=== PATIENT | female | born 1990 | race Caucasian/White ===

== ENCOUNTER 2020-09-23 11:50 | Emergency (ER) | payer MEDICAID, SELFPAY ==
[~2020-09-23] VITALS: Ht 170.2 cm; Wt 55.0 kg
--- NOTE | 2020-09-23 12:02 | NUR ---
PT BIB EMS FOR CO DIZZINESS, FATIGUE NAUSEA THAT STARTED THIS AM. PT FELT WEAK GETTING OUT OF BED AND CHILLS. PT DENIES CP OR COUGH, FEVERS. GIVEN 4MG ZOFRAN BY EMS
[2020-09-23] MEDS ORDERED: ACETAMINOPHEN 500 MG TABLET PO ONE (12:30)
[2020-09-23] MEDS ORDERED: SODIUM CHLORIDE 0.9% 1,000ML IVBOLUS ONE (12:30)
[2020-09-23] MEDS ORDERED: SODIUM CHLORIDE FLUSH 10ML SYR IVF ONE (12:30)
[2020-09-23 12:51] LABS: BASOPHILS % (AUTO) 1 % (0-1); EOSINOPHILS % (AUTO) 1 % (1-7); LYMPHOCYTES % (AUTO) 20 % (22-44); MD NO; MEAN CORPUSCULAR HEMOGLOBIN 31.8 pg (27.0-34.8); MEAN CORPUSCULAR HGB CONC 34.3 g/dL (32.4-35.8); MEAN PLATELET VOLUME 7.4 fL (7.4-10.4); MONOCYTES % (AUTO) 8 % (2-9); NEUTROPHILS % (AUTO) 70 % (42-75); PLATELET COUNT 478 x10^3/uL (130-400); RED CELL DISTRIBUTION WIDTH 13.1 % (9.6-15.2)
[2020-09-23 12:58] LABS: ALBUMIN 3.1 g/dL (3.4-5.0); ANION GAP 6 mmol/L (5-15); CHLORIDE 112 mmol/L (98-107)
[2020-09-23] MEDS ORDERED: ACETAMINOPHEN 500 MG TABLET ONE (12:59)
[2020-09-23 13:01] LABS: ALANINE AMINOTRANSFERASE 20 U/L (12-78); ALKALINE PHOSPHATASE 56 U/L (45-117); BILIRUBIN,TOTAL 0.5 mg/dL (0.2-1.0); CREATININE 0.68 mg/dL (0.55-1.02); TOTAL PROTEIN 7.1 g/dL (6.4-8.2)
--- NOTE | 2020-09-23 13:19 | NUR ---
BREAK RN: RN ATTEMPTED TO OBTAINED PIV BUT WAS UNSUCCESSFUL. TYLENOL PO ADMINISTERED PER EMAR. RN ASKED ANOTHER RN TO TRY AND OBTAIN PIV ACCESS. PT STATED WAS UNABLE TO VOID AT THIS TIME. RN TO REASSESS ONCE PIV ACCESS IS OBTAINED AND FLUIDS ARE STARTED.
[2020-09-23] MEDS ORDERED: KETOROLAC 30 MG/1 ML IVPush ONE (13:30)
[2020-09-23] MEDS ORDERED: KETOROLAC 30 MG/1 ML ONE (13:34)
--- NOTE | 2020-09-23 13:38 | NUR ---
BREAK RN: PT MEDICATED PER EMAR. STATED UNABLE TO VOID AT THIS TIME. RN PROVIDED PT WITH THE CALL LIGHT AND EDUCATED HER ON TO CALL WHEN SHE FEELS THE URGE TO VOID.
[2020-09-23 14:37] LABS: MICROSCOPIC INDICATED
--- NOTE | 2020-09-23 15:38 | NUR ---
Patient/Caregiver given discharge instructions and they have confirmed that they understand the instructions. Patient ambulatory with steady gait.
[2020-09-23 15:39] VITALS: BP 108/71
== END 2020-09-23 15:55 | disposition home or self-care (01) ==
LOC: ED 14:58
DX: B34.9 Viral infection, unspecified (principal); Z20.822 Contact with and (suspected) exposure to COVID-19; E86.0 Dehydration; R06.00 Dyspnea, unspecified; R42 Dizziness and giddiness; M79.10 Myalgia, unspecified site; R11.0 Nausea; R50.9 Fever, unspecified; F17.200 Nicotine dependence, unspecified, uncomplicated
CPT/HCPCS: 36415; 71045; 80053; 81001; 84145; 85025; 87086; 96361; 96374; 99284; J1885; J7030; U0003